=== PATIENT | female | born 1970 | race Caucasian/White ===

== ENCOUNTER 2018-02-27 17:50 | Emergency (ER) | payer MEDICAID, SELFPAY, OTHER ==
[2018-02-27] MEDS: ASPIRIN 81 MG CHEW TABLET PO (17:15)
[2018-02-27] MEDS: NS 1,000 ML IV (17:15)
[2018-02-27] MEDS: MORPHINE 4 MG/ML 1ML VIAL/SYRINGE (J2270) IV (17:30)
[2018-02-27] MEDS: CLOPIDOGREL 300 MG TAB (PLAVIX) PO (17:30)
[2018-02-27] MEDS: ONDANSETRON 4MG/2ML VIAL (J2405) IV (17:31)
[2018-02-27 17:38] LABS: HEMATOCRIT 44.2 % (36.0-47.0); HEMOGLOBIN 15.1 g/dl (12.0-15.5); MEAN CORPUSCULAR HEMOGLOBIN 31.7 pg (27.0-33.0); MEAN CORPUSCULAR HGB CONC 34.2 g/dl (32.0-36.5); MEAN CORPUSCULAR VOLUME 92.9 fl (80.0-96.0); PLATELET COUNT, AUTOMATED 311 10^3/uL (150-450); RED BLOOD COUNT 4.76 10^6/uL (4.00-5.40); RED CELL DISTRIBUTION WIDTH 12.8 % (11.5-14.5)
[2018-02-27] MEDS: TENECTEPLASE 50 MG KIT (TNKase)(J3101) IV (17:39)
[2018-02-27] MEDS: HEPARIN SOD (PORCINE) 5000 UNITS/ML VIAL IV (17:39)
[2018-02-27] MEDS: HEPARIN DRIP 25,000 UNITS in APPROPRIATE DILUENT 1 EA IV (17:40)
[2018-02-27 17:45] LABS: INR 1.06; PROTHROMBIN TIME 13.9 SECONDS (12.1-14.4)
[~2018-02-27 17:50] MED LIST: NITROGLYCERIN 0.4 MG SUBL TABLET SL
[2018-02-27] MEDS ORDERED: CLOPIDOGREL 300 MG TAB (PLAVIX) (17:51)
[2018-02-27] MEDS ORDERED: HEPARIN SOD (PORCINE) 5000 UNITS/ML VIAL (17:51)
[2018-02-27] MEDS ORDERED: HEPARIN 25,000 UNITS/250 ML D5W BAG (100 UNITS/ML) (17:51)
[2018-02-27] MEDS ORDERED: TENECTEPLASE 50 MG KIT (TNKase)(J3101) (17:51)
[2018-02-27] MEDS: NS 500 ML IV (17:54)
[2018-02-27 17:56] LABS: ADD MANUAL DIFFER YES; DIFF SLIDE NUMBER 351; POSITIVE DIFF POS FLAG; WHITE BLOOD COUNT 15.7 10^3/uL (4.0-10.0)
[2018-02-27 18:00] LABS: ALBUMIN 3.6 GM/DL (3.2-5.2); ALBUMIN/GLOBULIN RATIO 0.86 (1.00-1.93); ALKALINE PHOSPHATASE 127 U/L (45-117); ALT/SGPT 40 U/L (12-78); ANION GAP 13 MEQ/L (8-16); AST/SGOT 27 U/L (7-37); BILIRUBIN,DIRECT < 0.1 MG/DL (0.0-0.2); BILIRUBIN,TOTAL 0.3 MG/DL (0.2-1.0); BLOOD UREA NITROGEN 9 MG/DL (7-18); CALCIUM LEVEL 9.2 MG/DL (8.5-10.1); CARBON DIOXIDE LEVEL 22 MEQ/L (21-32); CHLORIDE LEVEL 107 MEQ/L (98-107); CPK CREATINE PHOSPHOKINASE 45 U/L (26-192); CREATININE FOR GFR 1.37 MG/DL (0.55-1.30); GLOMERULAR FILTRATION RATE 44.2 (>58); GLUCOSE, FASTING 157 MG/DL (70-100); LIPASE 135 U/L (73-393); SODIUM LEVEL 142 MEQ/L (136-145); TOTAL PROTEIN 7.8 GM/DL (6.4-8.2); TROPONIN I < 0.02 NG/ML (< 0.10)
[2018-02-27 18:01] LABS: CK-MB VALUE MASS < 1.0 NG/ML (<3.6); MB/CK RELATIVE INDEX 2.22 (< OR =4); NT-PRO BNP 90 PG/ML (<125)
[2018-02-27 18:29] LABS: ATYPICAL LYMPH 9 % (0-5); EOSINOPHILS 1 % (0-5); LYMPHOCYTES 24 % (16-52); MONOCYTES 4 % (0-8); NEUTROPHILS 62 % (35-75)
[2018-02-27 18:30] LABS: PLATELET ESTIMATE NORMAL (NORMAL)
== END 2018-02-27 18:28 | disposition short-term general hospital (02) ==
LOC: M ED 17:50
DX: I21.19 ST elevation (STEMI) myocardial infarction involving other coronary artery of inferior wall (principal); R06.02 Shortness of breath; I11.9 Hypertensive heart disease without heart failure; I25.2 Old myocardial infarction; F17.200 Nicotine dependence, unspecified, uncomplicated; Z88.5 Allergy status to narcotic agent; Z79.899 Other long term (current) drug therapy; Z79.02 Long term (current) use of antithrombotics/antiplatelets
CPT/HCPCS: J2270

== ENCOUNTER 2018-09-05 05:07 | Emergency (ER) | payer MEDICAID ==
[~2018-09-05] VITALS: Ht 162.6 cm; Wt 70.5 kg
[~2018-09-05 05:07] MED LIST changes: +LIPI80TA PO; +METO1TAB33 PO; +NITR0.4D6 TD; -NITROGLYCERIN 0.4 MG SUBL TABLET SL; +PLAV1TAB2 PO
[2018-09-05] MEDS ORDERED: ATOR1TAB21 PO (05:40)
[2018-09-05] MEDS ORDERED: METO1TAB7 PO (05:40)
[2018-09-05] MEDS ORDERED: ISOS40TASA PO (05:40)
[2018-09-05] MEDS ORDERED: ONDANSETRON 4MG/2ML VIAL (J2405) IV ONE (05:45)
[2018-09-05] MEDS ORDERED: KETOROLAC 30 MG/ML VIAL (J1885) IV ONE (05:45)
[2018-09-05] MEDS ORDERED: NITROGLYCERIN 2% OINT 1 GM *U/D* PKT TOP ONE (05:45)
[2018-09-05 05:49] LABS: BASO # 0.1 10^3/uL (0.0-0.2); BASO % 0.5 % (0.0-1.0); EOS # 0.2 10^3/uL (0.0-0.50); EOS % 1.8 % (0.0-3.0); HEMATOCRIT 46.8 % (36.0-47.0); HEMOGLOBIN 15.6 g/dl (12.0-15.5); LYMPH # 3.8 10^3/uL (1.5-4.5); LYMPH % 29.5 % (24.0-44.0); MEAN CORPUSCULAR HEMOGLOBIN 30.8 pg (27.0-33.0); MEAN CORPUSCULAR HGB CONC 33.3 g/dl (32.0-36.5); MEAN CORPUSCULAR VOLUME 92.5 fl (80.0-96.0); MONO % 7.5 % (0.0-5.0); NEUTROPHILS # 7.8 10^3/uL (1.8-7.7); NEUTROPHILS % 60.4 % (36.0-66.0); PLATELET COUNT, AUTOMATED 241 10^3/uL (150-450); RED BLOOD COUNT 5.06 10^6/uL (4.00-5.40); WHITE BLOOD COUNT 12.9 10^3/uL (4.0-10.0)
[2018-09-05 05:56] LABS: INR 0.92; PROTHROMBIN TIME 12.5 SECONDS (12.1-14.4)
[2018-09-05 05:57] LABS: PARTIAL THROMBOPLASTIN TIME 29.2 SECONDS (25.4-37.6)
[2018-09-05] MEDS ORDERED: ASPI1TAB PO (06:09)
[2018-09-05 06:25] LABS: BLOOD UREA NITROGEN 5 MG/DL (7-18); CALCIUM LEVEL 8.7 MG/DL (8.5-10.1); CARBON DIOXIDE LEVEL 20 MEQ/L (21-32); CHLORIDE LEVEL 106 MEQ/L (98-107); CPK CREATINE PHOSPHOKINASE 66 U/L (26-192); GLOMERULAR FILTRATION RATE > 60.0 (>58); GLUCOSE, FASTING 112 MG/DL (70-100); MB/CK RELATIVE INDEX 4.85 (< OR =4); POTASSIUM SERUM 3.8 MEQ/L (3.5-5.1); SODIUM LEVEL 137 MEQ/L (136-145); TROPONIN I 0.47 NG/ML (< 0.10)
[2018-09-05] MEDS ORDERED: HEPARIN DRIP 25,000 UNITS in APPROPRIATE DILUENT 1 EA IV SCH (06:26)
[2018-09-05] MEDS ORDERED: HEPARIN SOD (PORCINE) 5000 UNITS/ML VIAL IV ONE (06:30)
[2018-09-05] MEDS ORDERED: TICAGRELOR 90 MG TABLET (BRILINTA) PO ONE (06:30)
[2018-09-05] MEDS ORDERED: LORazepam 2 MG/ML VIAL (J2060) IV STA (06:41)
[2018-09-05 07:45] VITALS: BP 136/98
--- NOTE | 2018-09-06 07:43 | ECGEPIP ---
Stationary ECG Study [facility] - ED Test Date: 2018-09-05 Pat Name: ROME BATRES Department: Room: - Gender: F Steward/Stewardess Lounge: GT : 1970 Requested By: SALOMON BAINS Order Number: [id number] Reading MD: Avery Logan Measurements Intervals [place] Rate: 81 P: 65 [place]: 157 QRS: -1 QRSD: 89 T: 90 QT: 362 QTc: 422 Interpretive Statements SINUS RHYTHM INFERIOR MYOCARDIAL INFARCTION, OF INDETERMINATE AGE Electronically Signed On 09-06-2018 7:43:14 EST by Avery Logan
--- NOTE | 2018-09-10 15:19 | REP ---
Clinical: Acute chest pain . Comparison: 02/27/2018 . Findings: The mediastinum and cardiac silhouette are stable and within normal limits for portable technique. Coronary stent noted along the right cardiac border. The lung salazar are clear without acute consolidation, effusion, or pneumothorax. Skeletal structures are intact. Impression: No acute cardiopulmonary process appreciated. Electronically Signed by Quan Pierce MD 09/10/2018 03:10 P
== END 2018-09-05 08:26 | disposition short-term general hospital (02) ==
LOC: EDBD 05:07 → M ED 05:07
DX: I21.4 Non-ST elevation (NSTEMI) myocardial infarction (principal); I10 Essential (primary) hypertension; E78.5 Hyperlipidemia, unspecified; I25.10 Atherosclerotic heart disease of native coronary artery without angina pectoris; I73.9 Peripheral vascular disease, unspecified; Z95.5 Presence of coronary angioplasty implant and graft; Z79.899 Other long term (current) drug therapy; Z79.82 Long term (current) use of aspirin; Z88.5 Allergy status to narcotic agent; F17.210 Nicotine dependence, cigarettes, uncomplicated
CPT/HCPCS: 36415; 71045; 80048; 82550; 82553; 85025; 85610; 85730; 93005; 93041; 94760; 96374; 96375; 99285; J1885; J2060; J2405

== ENCOUNTER 2019-09-13 02:55 | Emergency (ER) | payer MEDICAID, OTHER ==
[~2019-09-13] VITALS: Ht 172.7 cm; Wt 65.0 kg
[~2019-09-13 02:55] MED LIST changes: +ASPI81TA26 PO; +ATOR1TAB21 PO; +ISOS40TASA PO; +METO1TAB7 PO
[2019-09-13] MEDS ORDERED: ASPIRIN 325 MG TAB PO ONE (03:30)
[2019-09-13] MEDS ORDERED: NITROGLYCERIN 2% OINT 1 GM *U/D* PKT TOP ONE (03:45)
[2019-09-13 03:47] LABS: BASO # 0.1 10^3/uL (0.0-0.2); BASO % 0.4 % (0.0-1.0); EOS # 0.1 10^3/uL (0.0-0.5); EOS % 1.1 % (0.0-3.0); HEMATOCRIT 41.2 % (36.0-47.0); HEMOGLOBIN 13.9 g/dl (12.0-15.5); LYMPH # 3.2 10^3/uL (1.5-5.0); LYMPH % 24.1 % (24.0-44.0); MEAN CORPUSCULAR HGB CONC 33.7 g/dl (32.0-36.5); MEAN CORPUSCULAR VOLUME 91.8 fl (80.0-96.0); MONO # 0.8 10^3/uL (0.0-0.8); NEUTROPHILS % 68.1 % (36.0-66.0); PLATELET COUNT, AUTOMATED 267 10^3/uL (150-450); RED BLOOD COUNT 4.49 10^6/uL (4.00-5.40); WHITE BLOOD COUNT 13.1 10^3/uL (4.0-10.0)
[2019-09-13 04:00] LABS: INR 1.09; PARTIAL THROMBOPLASTIN TIME 31.3 SECONDS (25.0-38.4); PROTHROMBIN TIME 13.8 SECONDS (11.8-14.0)
[2019-09-13 04:11] LABS: BLOOD UREA NITROGEN 10 MG/DL (7-18); CALCIUM LEVEL 8.6 MG/DL (8.5-10.1); CARBON DIOXIDE LEVEL 21 MEQ/L (21-32); CHLORIDE LEVEL 110 MEQ/L (98-107); CK-MB VALUE MASS 1.1 NG/ML (<3.6); CPK CREATINE PHOSPHOKINASE 42 U/L (26-192); CREATININE FOR GFR 0.76 MG/DL (0.55-1.30); GLOMERULAR FILTRATION RATE > 60.0 (>58); GLUCOSE, FASTING 123 MG/DL (70-100); MB/CK RELATIVE INDEX 2.62 (< OR =4); POTASSIUM SERUM 3.6 MEQ/L (3.5-5.1); SODIUM LEVEL 140 MEQ/L (136-145); TROPONIN I 0.26 NG/ML (< 0.10)
[2019-09-13] MEDS ORDERED: HEPARIN DRIP 25,000 UNITS in IV 1 EA IV SCH (04:27)
[2019-09-13] MEDS ORDERED: HEPARIN SOD (PORCINE) 5000 UNITS/ML VIAL (J1644 PER 1000UNITS) IV ONE (04:30)
[2019-09-13] MEDS ORDERED: TICAGRELOR 90 MG TABLET (BRILINTA) PO ONE (04:30)
[2019-09-13 04:41] VITALS: BP 144/88
[2019-09-13] MEDS ORDERED: ASPI1CHW3 PO (05:01)
[2019-09-13] MEDS ORDERED: BRIL90TA PO (05:01)
[2019-09-13] MEDS ORDERED: TOPR100T PO (05:01)
[2019-09-13] MEDS ORDERED: NITR4TASL SL (05:01)
[2019-09-13] MEDS ORDERED: ISOS120T7 PO (05:01)
[2019-09-13] MEDS ORDERED: KETOROLAC 30 MG/ML VIAL (J1885) IV ONE (05:15)
[2019-09-13 08:35] VITALS: BP 138/93
--- NOTE | 2019-09-13 10:49 | ECGEPIP ---
[facility] Test Date: 2019-09-13 Pat Name: ROME BATRES Department: Room: - Gender: Female [employer] Operations Manager: ashlee : 1970 Requested By: SALOMON BAINS Order Number: [id number] Reading MD: Sameer Correa Measurements Intervals [place] Rate: 80 P: 9 AK: 153 QRS: 63 QRSD: 86 T: 26 QT: 371 QTc: 429 Interpretive Statements SINUS RHYTHM POSSIBLE LATERAL MYOCARDIAL INFARCTION, Age undetermined, ST-T abnormalities, consider inferolateral myocardial ischemia. Electronically Signed on 09-13-2019 10:49:14 EST by Sameer Correa
--- NOTE | 2019-10-02 11:04 | REP ---
Portable chest, 03:34 a.m., single AP view with the patient sitting: Comparison is 09/05/2018. The lung salazar are clear. The cardiac size is normal. The nathaniel, mediastinum, and skeletal structures are unremarkable. Impression: Negative portable chest. There is no interval change. Electronically Signed by Gonzalo Alvarez MD 09/13/2019 07:40 A
== END 2019-09-13 08:42 | disposition short-term general hospital (02) ==
LOC: M ED 02:55
DX: I21.4 Non-ST elevation (NSTEMI) myocardial infarction (principal); I25.2 Old myocardial infarction; Z86.79 Personal history of other diseases of the circulatory system; I25.10 Atherosclerotic heart disease of native coronary artery without angina pectoris; I10 Essential (primary) hypertension; E78.5 Hyperlipidemia, unspecified; Z95.5 Presence of coronary angioplasty implant and graft; F17.200 Nicotine dependence, unspecified, uncomplicated; Z88.5 Allergy status to narcotic agent
CPT/HCPCS: 71045; 80048; 82550; 82553; 85025; 85610; 85730; 93005; 96374; 99285; J1644; J1885

== ENCOUNTER → 2019-10-07 | Outpatient (REF) | payer OTHER ==
[~2019-10-07] MED LIST changes: +ASPI1CHW3 PO; +BRIL90TA PO; +ISOS120T7 PO; +NITR4TASL SL; +TOPR100T PO
[2019-10-07 16:19] LABS: BASO # 0.1 10^3/uL (0.0-0.2); BASO % 0.6 % (0.0-1.0); EOS # 0.2 10^3/uL (0.0-0.5); EOS % 2.2 % (0.0-3.0); HEMATOCRIT 42.7 % (36.0-47.0); LYMPH % 39.3 % (24.0-44.0); MEAN CORPUSCULAR HEMOGLOBIN 30.6 pg (27.0-33.0); MEAN CORPUSCULAR HGB CONC 32.8 g/dl (32.0-36.5); MEAN CORPUSCULAR VOLUME 93.2 fl (80.0-96.0); MONO # 0.6 10^3/uL (0.0-0.8); MONO % 7.1 % (0.0-5.0); NEUTROPHILS # 3.9 10^3/uL (1.5-8.5); NEUTROPHILS % 50.5 % (36.0-66.0); PLATELET COUNT, AUTOMATED 296 10^3/uL (150-450); RED BLOOD COUNT 4.58 10^6/uL (4.00-5.40); WHITE BLOOD COUNT 7.7 10^3/uL (4.0-10.0)
[2019-10-07 16:33] LABS: ALBUMIN 3.5 GM/DL (3.2-5.2); ALT/SGPT 24 U/L (12-78); BILIRUBIN,TOTAL 0.3 MG/DL (0.2-1.0); BLOOD UREA NITROGEN 9 MG/DL (7-18); CALCIUM LEVEL 9.5 MG/DL (8.5-10.1); CARBON DIOXIDE LEVEL 27 MEQ/L (21-32); CHLORIDE LEVEL 107 MEQ/L (98-107); CREATININE FOR GFR 0.68 MG/DL (0.55-1.30); FREE T4 1.18 NG/DL (0.76-1.46); GLOMERULAR FILTRATION RATE > 60.0 (>58); GLUCOSE, FASTING 86 MG/DL (70-100); POTASSIUM SERUM 4.5 MEQ/L (3.5-5.1); SODIUM LEVEL 138 MEQ/L (136-145); TOTAL PROTEIN 7.4 GM/DL (6.4-8.2)
== END ==
LOC: M SFHCCLAY 09:42
PROVIDERS: ATTEND Nurse Practitioner Family
DX: I25.10 Atherosclerotic heart disease of native coronary artery without angina pectoris (principal); I73.9 Peripheral vascular disease, unspecified; K59.1 Functional diarrhea; L65.9 Nonscarring hair loss, unspecified

== ENCOUNTER → 2021-10-07 | Outpatient (REF) | payer OTHER ==
[2021-10-07 16:03] LABS: BASO # 0.1 10^3/uL (0.0-0.2); BASO % 0.6 % (0.0-1.0); EOS # 0.2 10^3/uL (0.0-0.5); EOS % 2.3 % (0.0-3.0); HEMATOCRIT 46.9 % (36.0-47.0); HEMOGLOBIN 15.2 g/dl (12.0-15.5); LYMPH # 2.8 10^3/uL (1.5-5.0); MEAN CORPUSCULAR HEMOGLOBIN 28.2 pg (27.0-33.0); MEAN CORPUSCULAR HGB CONC 32.4 g/dl (32.0-36.5); MONO # 0.6 10^3/uL (0.0-0.8); MONO % 6.9 % (2.0-8.0); NEUTROPHILS # 5.6 10^3/uL (1.5-8.5); PLATELET COUNT, AUTOMATED 328 10^3/uL (150-450); RED BLOOD COUNT 5.39 10^6/uL (4.00-5.40); WHITE BLOOD COUNT 9.3 10^3/uL (4.0-10.0)
[2021-10-07 16:34] LABS: ALBUMIN 3.4 GM/DL (3.2-5.2); ALT/SGPT 40 U/L (12-78); BILIRUBIN,TOTAL 0.4 MG/DL (0.2-1.0); BLOOD UREA NITROGEN 13 MG/DL (7-18); CALCIUM LEVEL 10.2 MG/DL (8.5-10.1); CARBON DIOXIDE LEVEL 29 MEQ/L (21-32); CHLORIDE LEVEL 105 MEQ/L (98-107); CHOLESTEROL LEVEL 241 MG/DL (<200); CHOLESTEROL RISK RATIO 7.531 (<5); CREATININE FOR GFR 0.79 MG/DL (0.55-1.30); FREE T4 1.35 NG/DL (0.76-1.46); GLOMERULAR FILTRATION RATE > 60.0 (>51); GLUCOSE, FASTING 86 MG/DL (70-100); HDL CHOLESTEROL 32 MG/DL (>40); LDL CHOLESTEROL 166 MG/DL (<100); NON-HDL-C 209 MG/DL; POTASSIUM SERUM 5.1 MEQ/L (3.5-5.1); SODIUM LEVEL 136 MEQ/L (136-145); TOTAL PROTEIN 8.3 GM/DL (6.4-8.2); TRIGLYCERIDES LEVEL 215 MG/DL (<150)
== END ==
LOC: M SFHCCLAY 12:09
PROVIDERS: ATTEND Nurse Practitioner Family
DX: I25.10 Atherosclerotic heart disease of native coronary artery without angina pectoris (principal)

== ENCOUNTER → 2021-10-12 | Outpatient (CLI) | payer OTHER | LOC: M CLY 11:28 | PROVIDERS: ATTEND Nurse Practitioner Family | DX: I73.9 Peripheral vascular disease, unspecified (principal); F17.210 Nicotine dependence, cigarettes, uncomplicated ==